=== PATIENT | female | born 1995 | race Two or more races ===

== ENCOUNTER 2018-07-20 20:41 | Emergency (ER) | payer SELFPAY ==
[~2018-07-20] VITALS: Ht 157.5 cm; Wt 56.7 kg
[2018-07-20 21:13] VITALS: BP 127/72
[2018-07-20] MEDS ORDERED: IBUPROFEN 600 MG TABLET PO ONE ×2 (21:25→21:30)
[2018-07-20] MEDS ORDERED: TDAP [DIPH/PERTUSSIS/TET] 0.5 ML VIAL IM ONE ×2 (21:26→21:30)
== END 2018-07-20 22:23 | disposition home or self-care (01) ==
LOC: ER 20:51
DX: S61.412A Laceration without foreign body of left hand, initial encounter (principal); Z88.1 Allergy status to other antibiotic agents; W26.0XXA Contact with knife, initial encounter; Y93.89 Activity, other specified; Y92.89 Other specified places as the place of occurrence of the external cause; Y99.8 Other external cause status
CPT/HCPCS: 12001; 73120; 90471; 90715; 99283; A4606; A6402

== ENCOUNTER 2018-07-23 20:26 | Emergency (ER) | payer SELFPAY ==
[~2018-07-23] VITALS: Ht 157.5 cm; Wt 56.2 kg
[2018-07-23 21:10] VITALS: BP 126/88
== END 2018-07-23 21:14 | disposition home or self-care (01) ==
LOC: ER 20:29
DX: S61.412D Laceration without foreign body of left hand, subsequent encounter (principal); F41.9 Anxiety disorder, unspecified; Z88.1 Allergy status to other antibiotic agents; W26.0XXD Contact with knife, subsequent encounter
CPT/HCPCS: 99283; A4606